=== PATIENT | female | born 1930 | race Caucasian/White ===

== ENCOUNTER 2017-10-07 18:57 | Emergency (ER) | payer MEDICARE, OTHER ==
[2017-10-07] MEDS: DIPHTH,PERTUSS(ACELL),TET TOX 0.5 ML DISP.SYRIN. VAX IM ×2 (20:02→20:03)
[2017-10-07] MEDS: BACITRACIN TOPICAL OINT 14GM TUBE. TP (20:02)
== END 2017-10-07 20:19 | disposition home or self-care (01) ==
LOC: ER 18:57
DX: S61.451A Open bite of right hand, initial encounter (principal); Z88.5 Allergy status to narcotic agent; Z88.8 Allergy status to other drugs, medicaments and biological substances; Z88.6 Allergy status to analgesic agent; Z91.041 Radiographic dye allergy status; W54.0XXA Bitten by dog, initial encounter; Y93.89 Activity, other specified; Y99.8 Other external cause status; Y92.89 Other specified places as the place of occurrence of the external cause
CPT/HCPCS: 90715; 99283

== ENCOUNTER 2017-10-08 09:17 | Emergency (ER) | payer MEDICARE, OTHER | END 2017-10-08 09:52 | disposition home or self-care (01) | LOC: ER 09:52 | DX: S61.451D Open bite of right hand, subsequent encounter (principal); E11.9 Type 2 diabetes mellitus without complications; E78.00 Pure hypercholesterolemia, unspecified; I10 Essential (primary) hypertension; Z88.5 Allergy status to narcotic agent; Z88.6 Allergy status to analgesic agent; Z88.8 Allergy status to other drugs, medicaments and biological substances; Z91.041 Radiographic dye allergy status; W54.0XXD Bitten by dog, subsequent encounter | CPT/HCPCS: 99283 ==

== ENCOUNTER 2017-10-11 18:04 | Emergency (ER) | payer MEDICARE, OTHER | END 2017-10-11 19:01 | disposition left against medical advice (07) | LOC: ER 19:01 | DX: S61.451A Open bite of right hand, initial encounter (principal); E78.00 Pure hypercholesterolemia, unspecified; E11.9 Type 2 diabetes mellitus without complications; I10 Essential (primary) hypertension; Z88.5 Allergy status to narcotic agent; Z88.8 Allergy status to other drugs, medicaments and biological substances; Z88.6 Allergy status to analgesic agent; Z91.041 Radiographic dye allergy status; W54.0XXA Bitten by dog, initial encounter; Y93.89 Activity, other specified; Y99.8 Other external cause status; Y92.89 Other specified places as the place of occurrence of the external cause | CPT/HCPCS: 99281 ==